=== PATIENT | male | born 1955 | race Caucasian/White ===

== ENCOUNTER 2022-09-11 12:33 | Outpatient (REF) | payer MEDICARE, BC, SELFPAY ==
--- OUTSIDE RECORDS SUMMARY | 2022-09-11 12:38 | XMS_ITS ---
:1955 Author Care Team Providers Name Role Phone SREEKANTH MAX MD Primary Care Provider [phone] Allergies Code Code System Name Reaction Severity Status Onset Penicillin ? ? Active 6 Medications Name Status Start Date Stop Date ? ? acetaminophen 300 mg-codeine 30 mg tablet Completed ? 09/18/2021 allopurinol 300 mg tablet Active ? Not av ailable amlodipine 5 mg tablet Active ? Not avail able amoxicillin 500 mg capsule Completed ? 09/18 Asprin Ec Low Dose 81 mg tablet,delayed release Active ? Not available Take 1 tablet every day by oral route. chlorhexidine gluconate 0.12 % mouthwash Completed ? 09/18/2021 clindamycin HCl 300 mg capsule Completed ? 1 finasteride 5 mg tablet Active ? Not avai lable ibuprofen 800 mg tablet Active ? Not avai lable TAKE 1 TABLET BY MOUTH EVERY 8 HOURS NEEDED FOR PAIN losartan 100 mg tablet Completed ? 0 losartan 50 mg tablet Active ? Not availa ble methylprednisolone 4 mg tablets in a dose pack Completed ? 09/18/2021 nystatin 100,000 unit/gram topical cream Completed ? 09/18/2021 Problems Name Status Onset Date Source ? Hypertensive Disorder Active 09/07/2019 History Procedures None recorded. Results Lab Results Date Name Specimen Result Interpretation Description Value Range Status Address ? 09/13/2021 PSA, Serum or Plasma ? No observation recor ded. ? ? ? Past Encounters 09/18/2021 Raised Prostate Specific Antigen; Lower Urinary Tract Symptoms Due to Benign Prostatic Hypertrophy; Benign Prostatic Hyperplasia with Outflow Obstruction Matias Ortiz MD: [id number], [address], [place] [address], Ph. Social History Tobacco Smoking Status Former Smoker Vaccine List Notes: no pneumo vaccine documented in [facility] Plan of Care Reminders Provider Appointments None recorded. ? ? Lab None recorded. ? ? Referral None recorded. ? ? Procedures None recorded. ? ? Surgeries None recorded. ? ? Imaging None recorded. ? ? Vitals Height Weight BMI Blood Pressure 5 ft 8 in 238 lbs 36.2 kg/m2 136/80 mm[Hg]
[2022-09-13 20:24] LABS: Prostate Specific Antigen Free 0.3 ng/mL; Prostate Specific Antigen%Free 21 %; Prostate Specific AntigenTotal 1.4 ng/mL (0.0-4.0)
== END 2022-09-11 12:34 | disposition home or self-care (01) ==
LOC: NPINS 12:33
PROVIDERS: PCP Family Medicine; Visit Provider Urology
DX: R97.20 Elevated prostate specific antigen [PSA] (principal)
CPT/HCPCS: 84153; 84154

== ENCOUNTER 2022-11-15 08:17 | Outpatient (CLI) | payer MEDICARE, BC, SELFPAY ==
--- OUTSIDE RECORDS SUMMARY | 2022-11-15 08:18 | XMS_ITS | Encounter Summary ---
:1955 Author Care Team Providers Name Role Phone Fidel De La Cruz MD Primary Care Provider [phone] Reason for Visit BPH Follow Up Assessment and Plan 1. Raised prostate specific antigen - History of elevated PSA with negative MRI in 2015 and 2018 -PSA trending down on finasteride with f avorable PSA density ? finasteride 5 mg tablet 2. Lower urinary tract symptoms due to benign prostatic hypertrophy - 97 cc prostate on MRI March 2019; fin asteride started March 2019 -Renewed finasteride 5 mg daily Discussion Note: None recorded.Patient educational handouts: No information available. Plan of Care Reminders Provider Appointments [facility] to Office on [facility] around [facility] Lab None recorded. ? ? Referral None recorded. ? ? Procedures None recorded. ? ? Surgeries None recorded. ? ? Imaging None recorded. ? ? Medications Name Start Date ? ? allopurinol 300 mg tablet ? TAKE ONE TABLET BY MOUTH ONCE DAILY amlodipine 5 mg tablet ? TAKE ONE TABLET BY MOUTH ONCE DAILY Asprin Ec Low Dose 81 mg tablet,delayed release ? Take 1 tablet every day by oral route. finasteride 5 mg tablet ? TAKE ONE TABLET BY MOUTH ONCE DAILY ibuprofen 800 mg tablet ? TAKE 1 TABLET BY MOUTH EVERY 8 HOURS NEEDED FOR PA IN losartan 100 mg tablet ? TAKE ONE TABLET BY MOUTH ONCE DAILY losartan 50 mg tablet ? simvastatin 20 mg tablet ? TAKE ONE TABLET BY MOUTH AT BEDTIME Medications Administered None recorded. Vitals Height Weight BMI 5 ft 8 in 238 lbs 36.2 kg/m2 Results Lab Results None recorded. Allergies Code Code System Name Reaction Severity Onset Penicillin ? ? 08/22/2016 Problems Name Status Onset Date Source ? Hypertensive Disorder Active 09/07/2019 History Raised Prostate Specific Antigen Active 09/19/2022 ? Lower Urinary Tract Symptoms Due to Benign Prostatic Active 09/19/2022 ? Hypertrophy Procedures None recorded. Vaccine List Notes: no pneumo vaccine documented in [facility] Social History Tobacco Smoking Status Former Smoker What was the date of your most recent tobacco screening? Do you or have you ever used any other forms of tobacco or N nicotine? Family History Relation Problem Onset Age of Age Notes Sister Family history of breast cancer (No Information) N/A (No Notes) Father Alzheimer's disease (No Information) N/A (No Notes) Mother Family history of cardiac (No Information) N/A (No Notes) disorder Functional Status Unknown. Past Encounters Encounter Date Diagnosis Provider 09/19/2022 Raised Prostate Specific Antigen; Leonides Ortiz MD: [id number]ract Symptoms Due to [address], [address], Benign Prostatic Hypertrophy [place] [address], [place]. History of Present Illness Note: <p>08/22/16: Referred for possible prostate nodule. PSA is 3.68, was 3.5 last year. No family hx prostate cancer. Does have some weak stream and nocturia x1. Diminished duration of erections but sufficient for intercourse. No prior abdominal surgery</p><div>
</div><p>02/25/17: Prostate normal on my exam last visit (only apex palpable); normal prostate MRI 08/27/16; volume 79 gm. PSA stable at 3.7. Mild LUTS, not bothersome.</p><div>
</div><p>03/05/18: Most recent PSA 3.38 Aug 2017. Notices some weak stream, hesitancy but mild, notvery bothersome. Also complains of premature ejaculation issues.</p><div>
</d iv><p>03/09/19: PSA has been 5.09 in Sep and now 5.56 on 03/02/19 at [place]. AUA SS 10, bother 2. Has some freq/urgency with coffee and ETOH. Drinks about 4 cups coffee /AM.</p><div>
</div><p>09/07/19: Recheck PSA down to 2.12; started finasteride 4-5 mo ago. Prostate MRI 03/20/19 is normal (prostate 97 cc). Notes some improvement in freq/urgency since adding fi nasteride.</p><div>
</div><p>09/12/20: He remains on finasteride and symptoms are well controlled, tolerating this well. PSA is down to 1.75 again (3.5 adjusted for finasteride).</p><div>
</div><div>09/18/21: Overall he is doing very well on finasteride. PSA 1.68 (3.76 adjusted). Nocturia x0-1. AUA symptom score 5, bother one. Postvoidresidual 186 mL.</div><div>
</div><div>09/19/22: He continues to chidi on finasteride. PSA 1.4 (2.8 adjusted). Free PSA 21%. Postvoid residual 109 mL.</div> Review of Systems ? Comprehensive General Adult ROS Reported By: Patient Constitutional: Constitutional: no fever, no chills Eyes: Eyes: no dry eyes, no vision change, no irritation Endocrine: Endocrine: no fatigue, no in creased thirst Cardiovascular: Cardiovascular: no chest amanda n, no palpitations Integumentary: Skin: no rashes, no change i n skin color Respiratory: Respiratory: no wheezing, no cough, no shortness of breath Gastrointestinal: Gastrointestinal: no abdomin al pain, no nausea, no vomiting, no constipation, no GERD Musculoskeletal: Musculoskeletal: no neck amanda n, no back pain Neurologic: Neurologic: no tremor, no di zziness, no numbness, no headaches Genitourinary: Genitourinary: no incontinen ce, no difficulty urinating ENMT: Ears: no ear pain. Mouth/Thr oat: no sore throat Allergic/Immunologic: Allergy/Immunologic: no itch ing, no hives Hematologic/Lymphatic: Hematologic/Lymphatic no swo llen glands, no excessive bleeding Psychiatric: Psych: no hallucinations, (n ormal) sleep disturbances: mismatch of sleep / wake remy edule with lifestyle needs Physical Exam ? Notes: <div>General: No acute distr ess, well developed/well nourished
Resp: respirations non labored, no audible wheeze
MSK: no gross deformities
Neuro: moving all extremities, grossly non focal
Psych: normal mood and affect, no c onfusion</div>
--- OUTSIDE RECORDS SUMMARY | 2022-11-15 08:18 | XMS_ITS ---
:1955 Author Care Team Providers Name Role Phone SREEKANTH MAX MD Primary Care Provider [phone] Allergies Code Code System Name Reaction Severity Status Onset Penicillin ? ? Active 6 Medications Name Status Start Date Stop Date ? ? acetaminophen 300 mg-codeine 30 mg tablet Completed ? 09/18/2021 allopurinol 300 mg tablet Active ? Not av ailable TAKE ONE TABLET BY MOUTH ONCE DAILY amlodipine 5 mg tablet Active ? Not avail able TAKE ONE TABLET BY MOUTH ONCE DAILY amoxicillin 500 mg capsule Completed ? 09/18 Asprin Ec Low Dose 81 mg tablet,delayed release Active ? Not available Take 1 tablet every day by oral route. chlorhexidine gluconate 0.12 % mouthwash Completed ? 09/18/2021 clindamycin HCl 300 mg capsule Completed ? 1 finasteride 5 mg tablet Active ? Not avai lable TAKE ONE TABLET BY MOUTH ONCE DAILY ibuprofen 800 mg tablet Active ? Not avai lable TAKE 1 TABLET BY MOUTH EVERY 8 HOURS NEEDED FOR PAIN losartan 100 mg tablet Active ? Not avail able TAKE ONE TABLET BY MOUTH ONCE DAILY losartan 50 mg tablet Active ? Not availa ble methylprednisolone 4 mg tablets in a dose pack Completed ? 09/18/2021 nystatin 100,000 unit/gram topical cream Completed ? 09/18/2021 simvastatin 20 mg tablet Active ? Not chapo ilable TAKE ONE TABLET BY MOUTH AT BEDTIME Problems Name Status Onset Date Source ? Hypertensive Disorder Active 09/07/2019 History Raised Prostate Specific Antigen Active 09/19/2022 ? Lower Urinary Tract Symptoms Due to Benign Prostatic Active 09/19/2022 ? Hypertrophy Procedures None recorded. Results Lab Results Date Name Specimen Result Interpretation Description Value Range Status Address ? 09/13/2021 PSA, Serum or Plasma ? No observation recor ded. ? ? ? Past Encounters Encounter Date Diagnosis Provider 09/19/2022 Raised Prostate Specific Antigen; Leonides Ortiz MD: [address] Symptoms Due to [address], [address], Benign Prostatic Hypertrophy [place] [address], Ph. 09/18/2021 Raised Prostate Specific Antigen; Leonides Ortiz MD: [address] Symptoms Due to [address], [address], Benign Prostatic Hypertrophy; [place] [address], Ph. Prostatic Hyperplasia with Outflow Obstruction Social History Tobacco Smoking Status Former Smoker Vaccine List Notes: no pneumo vaccine documented in [facility] Plan of Care Reminders Provider Appointments None recorded. ? ? Lab None recorded. ? ? Referral None recorded. ? ? Procedures None recorded. ? ? Surgeries None recorded. ? ? Imaging None recorded. ? ? Vitals 09/19/2022 08:10AM ESTABLISHED 10 Height Weight BMI 5 ft 8 in 238 lbs 36.2 kg/m2 09/12/2020 08:40AM ESTABLISHED 10 Height Weight BMI Blood Pressure 5 ft 8 in 238 lbs 36.2 kg/m2 136/80 mm[Hg]
[2022-11-15 10:51] LABS: Chloride* 108 mmol/L (96-114); Sodium* 139 mmol/L (135-149)
[2022-11-15 10:52] LABS: Potassium* 4.5 mmol/L (3.6-5.1)
[2022-11-15 10:54] LABS: Estimated Glomerular Filt Rate 82 ml/min
[2022-11-15 10:55] LABS: Blood Urea Nitrogen* 18 mg/dL (7-30); Carbon Dioxide* 27 mmol/L (20-32); Glucose* 98 mg/dL (60-115)
[2022-11-15 11:25] LABS: PSA Screen* 1.66 ng/mL (0.10-4.00)
[2022-11-20 17:47] LABS: Alanine Aminotransferase* 26 U/L (4-50); Aspartate Amino Transferase* 28 U/L (12-35); Cholesterol* 135 mg/dL (90-199); Triglycerides* 186 mg/dL (40-149)
[2022-11-20 17:48] LABS: HDL Cholesterol* 30 mg/dL (>=40); LDL Cholesterol Calculated 68 mg/dL (<100)
== END 2022-11-15 08:18 | disposition home or self-care (01) ==
LOC: NFLDREF 08:17
PROVIDERS: PCP Family Medicine; Visit Provider Family Medicine
DX: Z00.00 Encounter for general adult medical examination without abnormal findings (principal); I10 Essential (primary) hypertension; N40.2 Nodular prostate without lower urinary tract symptoms; E78.5 Hyperlipidemia, unspecified; E66.01 Morbid (severe) obesity due to excess calories
CPT/HCPCS: 80048; 80061; 84153; 84450; 84460

== ENCOUNTER 2022-11-27 07:02 | Outpatient (CLI) | payer MEDICARE, BC, SELFPAY ==
--- NOTE | 2022-11-27 07:15 | CRLHL7_ITS ---
For Patients: As a result of the Cures Act, medical imaging exams and procedure reports are released immediately into your electronic medical record. You may view this report before your referring provider. If you have questions, please contact your health care provider. Examination: US abdominal aorta Indication: Follow-up aneurysm Technique: Tracey scale and color Doppler images of the aorta and common iliac arteries are obtained. Comparison: 12/08/2020 Findings: Proximal aorta: 3.6 x 3.6 cm, previously measuring 3.6 x 3.6 cm. Mid aorta: 2.4 x 2.8 cm Distal aorta: 2.1 x 2.4 cm Right common iliac artery: 1.6 x 1.6 cm Left common iliac artery: 1.7 x 1.6 cm Impression: No significant interval change in the 3.6 cm proximal abdominal aortic aneurysm. Recommended imaging interval: 3.5-3.9 cm: 2 years Dictated by Veto Heart MD @ 11/27/2022 8:27:47 AM (Electronically Signed)
== END 2022-11-27 07:03 | disposition home or self-care (01) ==
LOC: US 07:03
PROVIDERS: PCP Family Medicine; Visit Provider Family Medicine
DX: I71.40 Abdominal aortic aneurysm, without rupture, unspecified (principal)
CPT/HCPCS: 76775

== ENCOUNTER 2023-03-01 06:15 | Outpatient (CLI) | payer MEDICARE, BC, SELFPAY | END 2023-03-01 06:16 | disposition home or self-care (01) | PROVIDERS: PCP Family Medicine; Visit Provider Internal Medicine | DX: Z12.11 Encounter for screening for malignant neoplasm of colon (principal); K63.5 Polyp of colon; K57.30 Diverticulosis of large intestine without perforation or abscess without bleeding; Z86.010 Personal history of colon polyps | CPT/HCPCS: 45380; 88305; J2250; J3010 ==

== ENCOUNTER 2023-09-20 09:52 | Outpatient (REF) | payer MEDICARE, BC, SELFPAY ==
[2023-09-20 10:49] LABS: PSA Diagnostic* 1.59 ng/mL (0.10-4.00)
== END 2023-09-20 09:53 | disposition home or self-care (01) ==
LOC: NPINS 09:52
PROVIDERS: PCP Family Medicine; Visit Provider Urology
DX: R97.20 Elevated prostate specific antigen [PSA] (principal)
CPT/HCPCS: 84153

== ENCOUNTER 2023-11-19 07:50 | Outpatient (CLI) | payer MEDICARE, BC, SELFPAY | END 2023-11-19 07:51 | disposition home or self-care (01) | LOC: NFLDREF 11-20 08:26 | PROVIDERS: PCP Family Medicine; Referring Provider Family Medicine; Visit Provider Family Medicine | DX: E78.5 Hyperlipidemia, unspecified (principal); I10 Essential (primary) hypertension | CPT/HCPCS: 80053; 80061 ==

== ENCOUNTER 2024-09-04 10:01 | Outpatient (CLI) | payer MEDICARE, BC, SELFPAY | END 2024-09-04 10:02 | disposition home or self-care (01) | PROVIDERS: PCP Family Medicine; Referring Provider Family Medicine; Visit Provider Family Medicine | DX: N40.0 Benign prostatic hyperplasia without lower urinary tract symptoms (principal); Z12.5 Encounter for screening for malignant neoplasm of prostate | CPT/HCPCS: G0103 ==

== ENCOUNTER 2024-11-17 08:40 | Outpatient (CLI) | payer MEDICARE, BC, SELFPAY | END 2024-11-17 08:41 | disposition home or self-care (01) | LOC: NFLDREF 11-18 05:32 | PROVIDERS: PCP Family Medicine; Referring Provider Family Medicine; Visit Provider Family Medicine | DX: E78.5 Hyperlipidemia, unspecified (principal); I10 Essential (primary) hypertension | CPT/HCPCS: 80053; 80061 ==

== ENCOUNTER 2025-09-22 07:33 | Outpatient (CLI) | payer MEDICARE, BC, SELFPAY | END 2025-09-22 07:34 | disposition home or self-care (01) | LOC: NFLDREF 07:33 | PROVIDERS: PCP Family Medicine; Visit Provider Family Medicine | DX: R97.20 Elevated prostate specific antigen [PSA] (principal); N40.1 Benign prostatic hyperplasia with lower urinary tract symptoms; R35.1 Nocturia; Z12.5 Encounter for screening for malignant neoplasm of prostate | CPT/HCPCS: G0103 ==

== ENCOUNTER 2025-11-01 08:04 | Outpatient (CLI) | payer MEDICARE, BC, SELFPAY | END 2025-11-01 08:05 | disposition home or self-care (01) | LOC: NFLDREF 11-05 06:12 | PROVIDERS: PCP Family Medicine; Referring Provider Family Medicine; Visit Provider Family Medicine | DX: E78.5 Hyperlipidemia, unspecified (principal); Z12.5 Encounter for screening for malignant neoplasm of prostate | CPT/HCPCS: 80053; 80061; G0103 ==

== ENCOUNTER 2025-11-12 07:01 | Outpatient (CLI) | payer MEDICARE, BC, SELFPAY ==
--- NOTE | 2025-11-12 07:15 | CRLHL7_ITS ---
For Patients: As a result of the Century Cures Act, medical imaging exams and procedure reports are released immediately into your electronic medical record. You may view this report before your referring provider. If you have questions, please contact your health care provider. Examination: US abdominal aorta Indication: Abdominal aortic aneurysm, without rupture. Technique: Tracey scale and color Doppler images of the aorta and common iliac arteries are obtained. Comparison: 11/27/2022 Findings: Proximal aorta: 3.6 x 3.6 cm Mid aorta: 2.5 x 2.3 cm Distal aorta: 2.0 x 2.0 cm Right common iliac artery: 1.3 x 1.3 cm Left common iliac artery: 1.6 x 1.5 cm Recommended imaging interval for ectatic aorta: 3.5-3.9 cm: 2 years Impression: 3.6 cm aneurysm of the proximal aorta, not significantly changed. Dictated by Veto Heart MD @ 11/12/2025 9:56:32 AM (Electronically Signed)
== END 2025-11-12 07:02 | disposition home or self-care (01) ==
PROVIDERS: PCP Family Medicine; Visit Provider Family Medicine
DX: Z13.6 Encounter for screening for cardiovascular disorders (principal); I71.9 Aortic aneurysm of unspecified site, without rupture
CPT/HCPCS: 76775